=== PATIENT | female | born 1990 | race Two or more races ===

== ENCOUNTER 2019-06-03 09:15 | Outpatient (CLI) | payer OTHER | END 2019-06-03 13:28 | disposition home or self-care (01) | LOC: LAB 09:15 | DX: R42 Dizziness and giddiness (principal); R51 Headache; R10.13 Epigastric pain ==

== ENCOUNTER → 2019-06-03 | Outpatient (CLI) | payer OTHER | END | disposition home or self-care (01) | LOC: SONOGRAMA 08:43 → MAMO-SONO 08:45 | DX: R10.13 Epigastric pain (principal) ==

== ENCOUNTER 2020-02-15 07:57 | Outpatient (CLI) | payer OTHER | END 2020-02-15 08:00 | disposition home or self-care (01) | LOC: SONOGRAMA 07:57 | DX: R10.2 Pelvic and perineal pain (principal) ==

== ENCOUNTER 2020-02-15 08:44 | Outpatient (CLI) | payer OTHER | END 2020-02-15 09:00 | disposition home or self-care (01) | LOC: LAB 08:44 | DX: Z00.00 Encounter for general adult medical examination without abnormal findings (principal); N39.0 Urinary tract infection, site not specified; E78.49 Other hyperlipidemia; E55.9 Vitamin D deficiency, unspecified; R42 Dizziness and giddiness; Z11.3 Encounter for screening for infections with a predominantly sexual mode of transmission ==

== ENCOUNTER 2020-05-05 12:20 | Emergency (ER) | payer OTHER ==
[~2020-05-05] VITALS: Ht 160 cm; Wt 62.6 kg
[2020-05-05] MEDS ORDERED: PROTONIX40 MG (12:42)
== END 2020-05-05 14:11 | disposition home or self-care (01) ==
LOC: ER 12:20
DX: M54.5 Low back pain (principal)

== ENCOUNTER 2021-10-20 14:18 | Emergency (ER) | payer OTHER ==
[~2021-10-20] VITALS: Ht 160 cm; Wt 61.2 kg
[~2021-10-20 14:18] MED LIST: PROTONIX40 MG
[2021-10-20] MEDS ORDERED: CARAFATE1 GM PO (20:58)
[2021-10-20] MEDS ORDERED: PROTONIX40 MG PO (20:58)
== END 2021-10-20 21:02 | disposition home or self-care (01) ==
LOC: ER 14:18
DX: K29.60 Other gastritis without bleeding (principal)